=== PATIENT | female | born 1980 | race Caucasian/White ===

== ENCOUNTER 2017-11-12 17:49 | Emergency (ER) | payer BC ==
[2017-11-12 18:08] VITALS: BP 107/65
[2017-11-12] MEDS ORDERED: Lidocaine 1% MPF* 2 ML VIAL INJ ONE (18:24)
--- NOTE | 2017-11-12 18:24 | UC ---
Laceration HPI - HPI Summary HPI Summary: 37 y/o female presents to the urgent care c/o laceration of her RT foot and Left middle and Rt middle finger s/p dropping a glass jug of water around 1700 today at home. Bleeding stopped w/ pressure after she dressed the wound. Lacerations in the fingers are very mild. Pain is 3/10 at touch. Pt can move Rt foot w/o any problem and denies numbness or tingling sensation. Pt denies fever , calf pain, SOB, chest pain, abdominal pain. N/V/D. Pt is UTD w/ Tetanus vaccines on 02/2017. Pt is 5 weeks and declines any X-rays to r/o FB. - History Of Current Complaint Chief Complaint: UCLaceration Stated Complaint: R FOOT LAC Time Seen by Provider: 11/12/17 18:14 Hx Obtained From: Patient Hx Last Menstrual Period: 10/06/17 Laceration Location: Foot - RT foot adn B/L middle fingers Mechanism Of Injury: Sharp Trauma Onset/Duration: Sudden Onset, Lasting Hours - 1hr ago Severity: Mild Pain Intensity: 3 Pain Scale Used: 0-10 Numeric Aggravating Factors: Other: - touch Related History: Dominant Hand Right - Allergies/Home Medications Allergies/Adverse Reactions: Allergies Allergy/AdvReac Type Severity Reaction Status Date / Time codeine Allergy Vomiting Verified 11/12/17 18:09 Penicillins Allergy Vomiting Verified 11/12/17 18:09 Home Medications: Home Medications 118/Iron/Folate 6/Dha [[facility] Softgel] 1 tab PO DAILY 11/12/17 [ History Confirmed 11/12/17] PMH/Surg Hx/FS Hx/Imm Hx Previously Healthy: Yes - Pt denies PMHX - Surgical History Surgical History: Yes Surgery Procedure, Year, and Place: WISDOM TEETH EXTRACTION - Family History Known Family History: Positive: Diabetes - Social History Occupation: Employed Full-time Lives: With Family Alcohol Use: None Substance Use Type: None Smoking Status (MU): Never Smoked Tobacco - Immunization History Most Recent Tetanus Shot: 2017 Hx Tetanus, Diphtheria Vaccination: Yes Review of Systems Constitutional: Negative Skin: Other - laceration of RT foot and B/L middle fingers s/p dropping and glass jug Eyes: Negative ENT: Negative Respiratory: Negative Cardiovascular: Negative Gastrointestinal: Negative Genitourinary: Negative Motor: Negative Neurovascular: Negative Musculoskeletal: Other: - Rt foot pain s/p laceration Neurological: Negative Psychological: Negative Is Patient Immunocompromised?: No All Other Systems Reviewed And Are Negative: Yes Physical Exam - Summary Physical Exam Summary: Vital Signs Reviewed: Yes General: well developed, well nourished female sitting in the examining table w/o any apparent distress Eye Exam: Normal Eyes: Positive: Conjunctiva Clear - PERRLA, EOMI, fundi grossly normal ENT: Positive: Normal ENT inspection, Hearing grossly normal, Pharynx normal, TMs normal Neck: Positive: Supple, Nontender, No Lymphadenopathy Respiratory: Positive: Chest non-tender, Lungs clear, Normal breath sounds, No respiratory distress Cardiovascular: Positive: RRR, No Murmur, Pulses Normal, Brisk Capillary Refill Abdomen Description: Positive: Nontender, No Organomegaly, Soft. Negative: CVA Tenderness (R), CVA Tenderness (L) Bowel Sounds: Positive: Present Musculoskeletal: Positive: Strength Intact, ROM Intact, No Edema Neurological: Positive: Alert, Muscle Tone Normal Psychological Exam: Normal Skin: Positive: dorsal side of RT foot over the navicular bone with a linear superficial laceration about 1.5cm in size, non bleeding, no foreign body observed. mild tenderness to palpation, no ecchymosis or swelling observed. FROM of RT Foot and toes, sensation intact, capillary refill brisk, and pulses WNL. B/L middle fingers w/ distal discrete superficial avulse laceration, about 0.3 cm in size no repair necessary, FROM of the fingers, non bleeding and non tender palpation or swelling. Triage Information Reviewed: Yes Vital Signs: Initial Vital Signs Temp 98.8 F 11/12/17 18:04 Pulse 74 11/12/17 18:04 Resp 12 11/12/17 18:04 BP 107/65 11/12/17 18:04 Pulse Ox 100 11/12/17 18:04 Laceration Repair - Laceration Repair 1 Description: Linear - superficial laceration Laceration Size After Repair: Length (cm) - 1.5cm in size Modified For Repair: No Type Injection: Local Anesthesia Used: 1.0% Lido - 0.8ml Cleansing Completed Via Routine Prep: Yes Irrigation With Pressure Irrigation Device: Yes Closure Material: Sutures - 4 Closure Method: Single Layer Suture Of: Skin, SQ Suture Type: Nylon - 5.0 Laceration Course/Dx - Course/Dx Course Of Treatment: 37 y/o female presents to the urgent care c/o laceration of her RT foot and Left middle and Rt middle finger s/p dropping a glass jug of water around 1700 today at home. Bleeding stopped w/ pressure after she dressed the wound. Lacerations in the fingers are very mild. Pain is 3/10 at touch. Pt can move Rt foot w/o any problem and denies numbness or tingling sensation. Pt denies fever, calf pain, SOB, chest pain, abdominal pain. N/V/D. Pt is UTD w/ Tetanus vaccines on 02/2017. Pt is 5 months and declines any X-rays to r /o FB. Hx obtained. Pt w/ dorsal side of Rt foot superficial laceration about 1.5cm in size which needs repair. and b/l avulse discrete lacerations about 0.3cm which do not need repair. LACERATION PROCEDURE NOTE: . Copious irrigation was done with saline by the nurse and the wound explored. There was no FB or deep structure injury noted. FROM of left forearm. procedure was explained and consent obtained, Timeout performed. The wound was anesthetized with 0.8ml of 1% lido with good anesthesia. Sterile drape and prep were done. There were 4 sutures with 5.0 nylon type of suture. The length of the wound after closure was 1.5cm. No debridement done. Wound was covered bacitracin with sterile non adherent dressing. The Pt tolerated the procedure well without adverse effects. Neurovascular intact and FROM. Pt advised to f/u suture removal in 12-14 days and if any signs of infection develop to immediately return to the urgent care of PCP for further management and treatment. D/C instructions explained. Pt understood and agreed and left the clinic ambulating A&Ox3. - Differential Dx - Laceration/Wound Differental Diagnoses: Avulsion, Dehiscence, Hematoma, Laceration, Puncture Wound, Tendon Laceration Provider Diagnoses: 1- Rt foot laceration repair. 2- B/L midlle fingers avulse laceration Discharge - Sign-Out/Discharge Documenting (check all that apply): Patient Departure - D/C home All imaging exams completed and their final reports reviewed: No Studies - Discharge Plan Condition: Stable Disposition: HOME Patient Education Materials: Care For Your Stitches (ED), Laceration (ED) Referrals: Eliseo Hoyt MD [Primary Care Provider] - 2 Weeks Additional Instructions: 1-Please apply topical triple antibiotic over the wound. Keep wound clean and dry 2- F/u suture removal in 12-14 days days w/ your PCP or here at the urgent care. 3-Take Tylenol PO q6-8hrs prn for pain or swelling. Keep foot elevated and avoid to much flexion of your Rt foot for the following 2 days 4- If you develop fever or redness around your laceration please return to the Urgent care. for further management - Billing Disposition and Condition Condition: STABLE Disposition: Home
[2017-11-12] MEDS ORDERED: Lidocaine 2% PF * 5 ML VIAL ONE (18:39)
[2017-11-12] MEDS ORDERED: Lidocaine 1%* 5 ML VIAL ONE (18:40)
== END 2017-11-12 19:32 | disposition home or self-care (01) ==
LOC: UCEAST 17:49
DX: S91.311A Laceration without foreign body, right foot, initial encounter (principal); S61.213A Laceration without foreign body of left middle finger without damage to nail, initial encounter; S61.212A Laceration without foreign body of right middle finger without damage to nail, initial encounter; W25.XXXA Contact with sharp glass, initial encounter; Y93.9 Activity, unspecified; Y92.9 Unspecified place or not applicable; Z88.5 Allergy status to narcotic agent; Z88.0 Allergy status to penicillin
CPT/HCPCS: 12001; 99211; G0463

== ENCOUNTER 2017-12-25 01:49 | Emergency (ER) | payer BC ==
--- NOTE | 2017-12-25 02:08 | ED ---
- HPI Summary HPI Summary: A 37 y/o F, A1, presents to ED with c/o bright red vaginal bleeding onset two days ago and worsening at 2300 on 12/24/17. Her design engineering specialist, Therese Sepulveda, was aware of the bleeding two days ago. Associated sx: lightheaded/dizziness. Pt says she has passed tissue, a clear fluid filled sac approx the size a 50 cent piece, what seemed to be the placenta, and multiple clots. Blood type: O positive. [facility]: 10/06/17. - History of Current Complaint Chief Complaint: EDVaginalBleeding Stated Complaint: OB PROBLEM Time Seen by Provider: 12/25/17 01:59 Hx Obtained From: Patient, Medical Records Onset/Duration: Started Days Ago, Still Present Timing: Constant Severity: Mild Current Severity: Moderate Pain Intensity: 2 - out of 10 Associated Signs and Symptoms: Positive: Vaginal Bleeding or Discharge - Assessment Hx Now: Yes - 5 wks - Allergies/Home Medications Allergies/Adverse Reactions: Allergies Allergy/AdvReac Type Severity Reaction Status Date / Time codeine Allergy Vomiting Verified 11/12/17 18:09 Penicillins Allergy Vomiting Verified 11/12/17 18:09 PMH/Surg Hx/FS Hx/Imm Hx Previously Healthy: Yes Opthamlomology History: Denies: Hx Legally Blind EENT History: Denies: Hx Deafness - Surgical History Surgery Procedure, Year, and Place: WISDOM TEETH EXTRACTION Infectious Disease History: No Infectious Disease History: Denies: Traveled Outside the [place] in Last 30 Days - Family History Known Family History: Positive: Diabetes - Social History Occupation: Unemployed - OTHER Lives: With Family Alcohol Use: None Hx Substance Use: No Substance Use Type: Reports: None Hx Tobacco Use: No Smoking Status (MU): Never Smoked Tobacco Review of Systems Negative: Fever Positive: other - pos: vaginal bleeding Neurological: Other - pos: lightheaded/dizzy All Other Systems Reviewed And Are Negative: Yes Physical Exam - Summary Physical Exam Summary: Appearance: Well appearing, no pain distress Skin: warm, dry, pale Head/face: normal Eyes: EOMI, ROSINA ENT: mucous membranes moist and pale Neck: supple, non-tender Respiratory: CTA, breath sounds present Cardiovascular: RRR, pulses symmetrical Abdomen: non-tender, soft Bowel Sounds: present Musculoskeletal: normal, strength/ROM intact Neuro: normal, sensory motor intact, A&Ox3 Nurse Nereyda chaperoned. Pelvic: vaginal vault is full of clots, products of conception are present in cervical os, the os is open - Physical Exam Triage Information Reviewed: Yes Vital Signs Reviewed: Yes Diagnostics - Vital Signs Vital Signs Temp Pulse Resp BP Pulse Ox 12/25/17 01:54 98.5 F 83 18 105/64 100 - Laboratory Result Diagrams: 12/25/17 04:02 12/25/17 04:02 Lab Statement: Any lab studies that have been ordered have been reviewed, and results considered in the medical decision making process. Re-Evaluation - Re-Evaluation 1 Re-Evaluation Time: 03:46 Change: Unchanged Comment: Pt is still orthostatic. She is having minimal vaginal bleeding after removal of products of conception. She is lightheaded and pale when she sits up. Pt will stay and have U/S done at 0700. 2 Re-Evaluation Time: 06:00 Change: Improved Comment: Pt ambulated to the bathroom without assistance without problem. Course/Dx - Course Course Of Treatment: Patient with passing of products of conception at home. She had blood and clot in the vault here which I evacuated with suction and ring forceps. A piece of products of conception was removed from an open cervix. Following this her bleeding really tapered off quickly. She refused any Methergine. She did receive IV fluids and finally was allowed blood testing. Hemoglobin 11.4. Unknown baseline. O+ blood type. Pending ultrasound. Physician assistant store manager operations will follow this. Note that this represents my complete history and physical. I supervised the care of the physician assistant store manager operations as well. Assessment/Plan: 0213: Pt refused any bloodwork. - Differential Diagnosis/HQI/PQRI: Incomplete , Spontaneous , Retained Products of Conception - Diagnoses Provider Diagnoses: Spontaneous miscarriage Discharge - Sign-Out/Discharge Documenting (check all that apply): Sign-Out Patient Signing out patient TO: Phoebe Manley - pending U/S - Discharge Plan Condition: Improved Referrals: Eliseo Hoyt MD [Primary Care Provider] - - Billing Disposition and Condition Condition: IMPROVED - Attestation Statements Document Initiated by Scribe: Yes Documenting Scribe: [facility] Provider For Whom Scribe is Documenting (Include Credential): Dr. Seb Ibarra MD Scribe Attestation: I, Mary Solis, scribed for Dr. Seb Ibarra MD on 12/25/17 at 0655. Scribe Documentation Reviewed: Yes Provider Attestation: The documentation as recorded by the scribe, Mary Solis accurately reflects the service I personally performed and the decisions made by me, Dr. Seb Ibarra MD
[2017-12-25] MEDS: NS 0.9% 1000 ML* 1,000 ML IV ONE ×2 (03:38→04:06)
[2017-12-25 04:14] LABS: ABS Basophils 0 10^3/ul (0-0.2); ABS Eosinophils 0 10^3/ul (0-0.6); ABS Lymphocytes 0.9 10^3/ul (1.0-4.8); ABS Monocytes 0.5 10^3/ul (0-0.8); ABS Neutrophils 7.2 10^3/ul (1.5-7.7); ABS Nucleated RBC 0 10^3/ul; Eosinophil % 0.2 % (0-6); Hematocrit 33 % (35-47); Hemoglobin 11.4 g/dl (12.0-16.0); Lymphocyte % 10.8 % (25-47); Mean Corpuscular HGB Conc 34 g/dl (31-36); Mean Corpuscular Hemoglobin 33 pg (27-31); Mean Corpuscular Volume 95 fL (80-97); Mean Platelet Volume 6.9 um3 (7.4-10.4); Nucleated Red Blood Cells % 0; Platelet Count 199 10^3/ul (150-450); Red Cell Distribution Width 13 % (10.5-15); White Blood Count 8.7 10^3/ul (3.5-10.8)
[2017-12-25 04:30] LABS: EGFR Non-African American 100.2 (>60)
--- NOTE | 2017-12-25 08:29 | RAD ---
Indication: Miscarriage, bleeding. Real-time sonography of the was performed. The uterus measures 9.0 x 4.6 x 5.8 cm. Endometrial echo is heterogeneous measuring up to 21 mm. No evidence of a gestational sac is noted. Heterogeneous endometrium may be due to blood or retained products. The right ovary measures 2.6 x 1.0 x 2.6 cm. The left ovary measures 2.7 x 1.8 x 3.4 cm. IMPRESSION: There is no evidence of intrauterine gestation. Thickened heterogeneous endometrium may represent retained products versus hemorrhage.
--- NOTE | 2017-12-25 10:23 | ED ---
Progress - Progress Note Progress Note: Pt sign out from Dr. Ibarra pending TVUS for misscarriage. TVUS reveals 21mm endometrium and heterogenous tissue/POC vs. hemorrhage. Discussed w/ pt's credit and collection manager, Therese Sepulveda, and OBGYN, Dr. Doty. Since pt's vital signs are stable, H&H is also stable and bleeding has reduced significantly since removal of clots/POC, patient may be discharged and monitored at home and follow-up with MEDICAL ASSISTING INSTRUCTOR. Patient is agreeable with this plan. Reviewed danger signs and symptoms such as infection, increasing pain, fever, heavy blood flow, weakness/ dizziness/increased heart rate. Re-Evaluation - Re-Evaluation 1 Re-Evaluation Time: 03:46 Change: Unchanged Comment: Pt is still orthostatic. She is having minimal vaginal bleeding after removal of products of conception. She is lightheaded and pale when she sits up. Pt will stay and have U/S done at 0700. 2 Re-Evaluation Time: 06:00 Change: Improved Comment: Pt ambulated to the bathroom without assistance without problem. Course/Dx - Course Course Of Treatment: Patient with passing of products of conception at home. She had blood and clot in the vault here which I evacuated with suction and ring forceps. A piece of products of conception was removed from an open cervix. Following this her bleeding really tapered off quickly. She refused any Methergine. She did receive IV fluids and finally was allowed blood testing. Hemoglobin 11.4. Unknown baseline. O+ blood type. Pending ultrasound. Physician clinical laboratory assistant will follow this. Note that this represents my complete history and physical. I supervised the care of the physician clinical laboratory assistant as well. - Diagnoses Provider Diagnoses: Spontaneous miscarriage Discharge - Sign-Out/Discharge Documenting (check all that apply): Sign-Out Patient, Receiving Sign-Out, Post- Discharge Follow Up Signing out patient TO: Phoebe Manley Receiving patient FROM: Seb Ibarra - Discharge Plan Condition: Stable Patient Education Materials: Miscarriage (ED) Referrals: Ivon Doty MD [Medical Doctor] - Additional Instructions: Follow-up with OBGYN for recheck of test. Call today to schedule. *If you develop danger signs or symptoms, return to the ED - Billing Disposition and Condition Condition: STABLE
[2017-12-25 10:40] VITALS: BP 95/60
== END 2017-12-25 10:39 | disposition home or self-care (01) ==
LOC: ED 01:49
DX: O03.9 Complete or unspecified spontaneous abortion without complication (principal); Z88.0 Allergy status to penicillin; Z88.2 Allergy status to sulfonamides
CPT/HCPCS: 36415; 76817; 80048; 84702; 85025; 86850; 86900; 86901; 96360; 99283